=== PATIENT | female | born 1960 | race Caucasian/White ===

== ENCOUNTER 2017-09-28 10:08 | Emergency (ER) | payer OTHER ==
[~2017-09-28] VITALS: Ht 170.2 cm; Wt 71.3 kg
[2017-09-28 10:10] VITALS: BP 132/80
[2017-09-28] MEDS ORDERED: FLUORESCEIN OPHTHALMIC 1 MG STRIP EACHEYE ONE (10:30)
[2017-09-28] MEDS ORDERED: PROPARACAINE OPHTH 0.5%, 15ML EACHEYE ONE (10:30)
[2017-09-28] MEDS ORDERED: LEVO125T5 PO (11:12)
[2017-09-28] MEDS ORDERED: ATOR20TA PO (11:13)
== END 2017-09-28 12:01 | disposition home or self-care (01) ==
LOC: ED 11:43
DX: H53.131 Sudden visual loss, right eye (principal)
CPT/HCPCS: 99283